=== PATIENT | male | born 1975 | race Hispanic/Latino ===

== ENCOUNTER 2016-08-13 17:45 | Emergency (ER) | payer OTHER ==
[~2016-08-13] VITALS: Ht 165.1 cm; Wt 90.0 kg
[2016-08-13 17:54] VITALS: BP 155/75; PULSE 118; RESP 16; O2SAT 97
[2016-08-13 19:02] LABS: BASOPHILS % (AUTO) 0.1 % (0-3); EOSINOPHILS % (AUTO) 1.2 % (0-5); MONOCYTES % (AUTO) 11.4 % (4-12); Mean Corpuscular Hemoglobin 32.1 pg (27.0-35.0); Mean Corpuscular Volume 91.9 fL (81-100); NEUTROPHILS % (AUTO) 80.4 % (40-74); Platelet Count 209 bil/L (150-400)
[2016-08-13 19:20] LABS: Magnesium 1.9 mg/dL (1.6-2.6)
[2016-08-13] MEDS ORDERED: 0.9% Sodium Chloride 1,000 ML IV ONE (21:20)
[2016-08-13 22:04] VITALS: BP 115/79; PULSE 94; RESP 16; O2SAT 98
[2016-08-14] MEDS ORDERED: 0.9% Sodium Chloride 1,000 ML IV ONE (00:30)
[2016-08-14 02:01] VITALS: BP 123/69; PULSE 91; RESP 16; O2SAT 99
--- NOTE | 2016-08-14 02:13 | ED.REPORT ---
HPI-Abd Pain M 40 and Over Date of Service Aug 13, 2016 ED Provider: Piter Lynne MD Krystian Yost is a pleasant 41 year old gentleman who denies any previous or current medical problems, presents with complaint of diarrhea, upset stomach, and fever for 2 days. Said it started after consuming fish from [place], which he believes was not washed, but they cooked it medium. He showed the fish with his mariola who also has similar symptoms. He denies any blood, chest pain, shortness of breath, abdominal pain or tenderness, says that he has been feeling globally weak today especially in his legs, denies any rashes. No vomiting, has been able to eat and drink this tried taking [place], Pepto- Bismol, and said he was able to eat a burrito earlier today. Nursing Notes Stated Complaint: STOMACH PROBLEMS Chief Complaint: Male Abdominal Pain Nursing Notes Reviewed: Yes Allergies: Coded Allergies: No Known Allergies (Unverified , 08/13/16) General Time Seen by MD: 21:01 Chief Complaint Diarrhea moderate Hx Obtained From: Patient Sudden in Onset?: Yes Similar Sx Previous: No Past Medical History Past Medical History States he does not have any current or past medical problems Past Surgical History Occupational trauma to right arm, requiring surgery, unable to convey what exactly was done. Smoking History Never Smoker Social History Alcohol Use: Denies alcohol use Drug Use: Denies drug use Review of Systems Complete sys rev & neg: except as marked. Physical Exam General: Laying in bed, no apparent distress. HEENT: Normocephalic, atraumatic, EOMI grossly, neck supple without lymphadenopathy, because members moist, conjunctiva pink. Cardiovascular: Tachycardic, no clicks murmurs rubs, peripheral pulses 2/4 equal bilaterally Pulmonary: Clear to auscultation bilaterally, no W/R/R. Abdominal: Soft to palpation, bowel sounds hyperactive 4, no hepatosplenomegaly. Negative rebound. Atraumatic, no visible rashes. Extremities: No edema appreciated. No tenderness, asymmetry. Skin over extremities is without any lesions/rashes. There is a scar to the anterior right distal forearm Neuro: Neurologically grossly intact, strength is equal bilaterally upper and lower extremities. MSK: Gait is normal, able to move extremities on their own volition, strength 5 out of 5 equal bilaterally to upper and lower extremities. Initial Vital Signs Vital Signs (First) Date Time Temp Pulse Resp B/P Pulse Ox O2 Delivery O2 Flow Rate FiO2 08/13/16 17:54 38.7 118 16 155/75 97 Room Air Initial VS: Reviewed, Vital signs abnormal Interpretation & Diagnostics Lab Results Interpretation Result Diagram: 08/13/165 08/13/16 1845 Test 08/13/16 18:45 08/14/16 00:15 White Blood Count 8.6th/mm3 (3.8-10.1) Red Blood Count 4.70mil/mm3 (4.40-5.80) Hemoglobin 15.1g/dL (13.8-17.2) Hematocrit 43.2% (41.0-50.0) Mean Corpuscular Volume 91.9fL (81-100) Mean Corpuscular Hemoglobin 32.1pg (27.0-35.0) Mean Corpuscular Hemoglobin Concent 35.0% (32.0-37.0) Red Cell Distribution Width 12.5% (12.3-15.4) Platelet Count 209bil/L (150-400) Neutrophils (%) (Auto) 80.4% (40-74) Lymphocytes (%) (Auto) 6.8% (14-46) Monocytes (%) (Auto) 11.4% (4-12) Eosinophils (%) (Auto) 1.2% (0-5) Basophils (%) (Auto) 0.1% (0-3) Sodium Level 140mEq/L (134-144) Potassium Level 3.7mEq/L (3.5-5.2) Chloride Level 103mEq/L (97-108) Carbon Dioxide Level 21mmol/L (18-29) Blood Urea Nitrogen 17mg/dL (6-24) Creatinine 1.00mg/dL (0.76-1.27) Estimat Glomerular Filtration Rate 88mL/min (>59) Glucose Level 119mg/dL (60-99) Lactic Acid Level 1.2mmol/L (0.4-2.0) Calcium Level 9.1mg/dL (8.5-10.1) Magnesium Level 1.9mg/dL (1.6-2.6) Total Bilirubin 1.4mg/dL (0.0-1.2) Aspartate Amino Transf (AST/SGOT) 34U/L (0-50) Alanine Aminotransferase (ALT/SGPT) 41U/L (0-44) Alkaline Phosphatase 65U/L (25-150) Total Protein 7.7g/dL (6.4-8.4) Albumin 4.2g/dL (3.4-5.0) Lipase 29U/L (13-60) Hold Tapia Top Tube Received (Received) Lab Results Interpretation: Hyperbilirubinemia Elevated blood glucose Re-Eval/Medical Decision Med Decision/Clinical Course 41-year-old with diarrhea and fever. Diarrhea obtained for PCR testing tomorrow. He is stable for discharge at this point with results to be directed by PCR findings morning. No indication for antibiotics at this time. History and physical exam are suspicious for infectious cause, most likely viral , however given the possible fish vector parasitic and bacterial etiologies are possible. Patient was responsive to IV hydration, remained afebrile in the emergency department. Stool is to be tested using PCR panel, and evaluated for ova and parasite, given patient's improvement in the emergency department it was discussed that he could go home and continue with oral hydration, and he will be contacted with the results. He was given instructions for red flag symptoms to return to the emergency department. Patient stated understanding and agreement. Before leaving the department he was given a dose of Pepto- Bismol. Patient was able to ambulate from the department on his own volition, and agreed with plan. Counseled Regarding: Diagnosis, Lab results, Need for follow-up, When/why to return to ED Discharge & Departure Shift Change Sign-Out Response to Therapy: Improved Primary Impression: Diarrhea in adult patient Additional Impression: Diarrhea of presumed infectious origin Disposition: Home Vital Signs - All Vital Signs Date Time Temp Pulse Resp B/P Pulse Ox O2 Delivery O2 Flow Rate FiO2 08/14/16 02:32 37.1 86 16 128/79 99 Room Air 08/14/16 02:01 37.3 91 16 123/69 99 Room Air 08/13/16 22:04 36.8 94 16 115/79 98 Room Air 08/13/16 17:54 38.7 118 16 155/75 97 Room Air )( All Prior VS Reviewed: Yes Condition: Improved Patient Instructions: Acute Diarrhea (GEN), Gastroenteritis (ED) Additional Instructions: Thank you for entrusting us with your care. Today you were evaluated and treated for your acute diarrhea. You were given fluids into your vein to help you with the fluid loss. We have taken samples to evaluate for infectious causes. This can take up to a day to get results back, in the meantime you have improved in the department, your heart rate has come down, and you have not had a fever. We recommend you go home, continue to drink gatoraid or poweraid and eat soft foods. Please take 2 Pepto-Bismol tablets by mouth every two hours until your diarrhea is under control. Please follow-up with primary care doctor on Monday regarding her diarrhea and results from tests performed that have not yet returned. If you have worsening diarrhea, fevers that do not go away with Tylenol, or a rash, please return to urgent care or the emergency department if necessary. If there is something urgent found in your lab work, you will be contacted. Referrals: Brain Ryan MD (PCP) Attending Statement As attending of record for this patient, I conducted an independent history and physical exam, and I concur with the documentation per the resident note above, and as amended. copies to: Brain Ryan MD, Noah M DO Aug 13, 2016 21:02 Piter Lynne MD Aug 14, 2016 07:29
[2016-08-14 02:32] VITALS: BP 128/79; PULSE 86; RESP 16; O2SAT 99
== END 2016-08-14 02:35 | disposition home or self-care (01) ==
LOC: SED 17:45
DX: R19.7 Diarrhea, unspecified (principal)
CPT/HCPCS: 36415; 80053; 82272; 83605; 83690; 83735; 85025; 87040; 87507; 96360; 96361; 99284; J7030